=== PATIENT | male | born 1950 | race Caucasian/White ===

== ENCOUNTER 2018-06-13 11:26 | Emergency (ER) | payer MEDICARE ==
[~2018-06-13] VITALS: Ht 170.1 cm; Wt 51.7 kg
--- NOTE | ~2018-06-13 | EKG ---
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
--- NOTE | ~2018-06-13 | EKG ---
[place], [place] ELECTROCARDIOGRAM REPORT NAME: JERMAINE FRANKS UNIT #: [id number] ROOM: DOCTOR: EPIPHANY DRAFT REPORT BIRTHDATE: [birth year] [facility] Test Date: 2018-06-13 Test Time: 11:28:31 Pat Name: JERMAINE FRANKS Department: Room: Gender: Codifier: Liliam De Oliveira : 1950 Requested By: AURELIO GUAJARDO Order Number: [id number] Reading MD: Riky Mortensen MD Measurements Intervals [place] Rate: 119 P: 63 ND: 160 QRS: 65 QRSD: 86 T: 55 QT: 304 QTc: 428 Interpretive Statements Sinus tachycardia Inferolateral infarct, acute Borderline ST elevation, anterior leads Electronically Signed On 06-15-2018 8:20:59 PDT by Riky Mortensen MD CM:EKGRPT:ELECTROCARDIOGRAM REPORT [id number] AURELIO BARRY DRAFT REPORT AURELIO GUAJARDO MD
[~2018-06-13 11:26] MED LIST: METHADONE10 MG PO; MS CONTIN15 MG PO
[2018-06-13 11:40] LABS: BASO % 0.2 % (0.0-1.0); HEMATOCRIT 42.3 % (42.0-52.0); HEMOGLOBIN 13.5 g/dl (14.0-18.0); LYMPH # 2.4 10*3/uL (1.3-4.4); LYMPH % 10.5 % (27.0-41.0); MEAN CELL VOLUME 88.9 fl (80.0-94.0); MEAN CORPUSCULAR HGB 28.4 pg (27.0-31.0); MEAN CORPUSCULAR HGB CONC 31.9 g/dl (33.0-37.0); MEAN PLATELET VOLUME 8.8 fl (9.6-12.3); MONO # 1.3 10*3/uL (0.1-1.0); NEUT # 18.5 10*3/uL (2.3-7.9); NEUT % 82.9 % (47.0-73.0); PLATELET COUNT AUTOMATED 492 10*3/uL (130-400); RED BLOOD COUNT 4.76 10*6/uL (4.50-5.90); RED CELL DISTRI WIDTH 14.9 % (0-14.5); WHITE BLOOD COUNT 22.4 10*3/uL (4.8-10.8)
[2018-06-13] MEDS ORDERED: HYDROMORPHONE HC4 MG PO (11:48)
[2018-06-13] MEDS ORDERED: METHADONE HCL10 MG PO (11:48)
[2018-06-13 11:49] LABS: ACT PARTIAL THROMBO TIME 25.3 SECONDS (20.8-31.5)
[2018-06-13 11:57] LABS: ALBUMIN 2.8 gm/dl (3.1-4.5); ALKALINE PHOSPHATASE 127 U/L (45-117); BUN 6 mg/dl (7-24); CHLORIDE 95 mmol/L (98-107); POTASSIUM 3.8 mmol/L (3.5-5.1); SGOT/AST 8 IU/L (3-35); SGPT/ALT 10 U/L (12-78); SODIUM 132 mmol/L (136-145); TOTAL PROTEIN 8.6 gm/dL (6.4-8.2)
[2018-06-13 11:58] LABS: TROPONIN I < 0.015 ng/ml (<0.045)
== END 2018-06-13 17:35 | disposition short-term general hospital (02) ==
LOC: ED 11:26
PROVIDERS: Emergency Medicine
DX: A41.9 Sepsis, unspecified organism (principal); R65.20 Severe sepsis without septic shock; C78.00 Secondary malignant neoplasm of unspecified lung; I31.3 Pericardial effusion (noninflammatory); J18.9 Pneumonia, unspecified organism; F17.200 Nicotine dependence, unspecified, uncomplicated; Z88.0 Allergy status to penicillin; Z85.118 Personal history of other malignant neoplasm of bronchus and lung